=== PATIENT | female | born 1995 | race Caucasian/White ===

== ENCOUNTER 2017-02-25 08:31 | Emergency (ER) | payer OTHER, BC ==
[~2017-02-25] VITALS: Ht 170.2 cm; Wt 68.0 kg
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
[2017-02-25 09:29] LABS: BILIRUBIN,URINE NEGATIVE (NEG); GLUCOSE,URINE NEGATIVE (NEG); NITRITE,URINE NEGATIVE (NEG); PH,URINE 5.5; PROTEIN,URINE 30 mg/dL (NEG-TRACE); UROBILINOGEN,URINE 0.2 mg/dL (0.2 mg/dL)
[2017-02-25 09:39] LABS: RBC,URINE 0 /HPF (0-2)
[2017-02-25 09:40] LABS: BACTERIA,URINE 0 /HPF (0-FEW); SQUAMOUS EPITHELIAL CELL,UR MOD /LPF; WBC,URINE 0 /HPF (0-4)
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
[2017-02-25] MEDS ORDERED: DIPHTH,PERTUSS(ACELL),TET TOX 0.5 ML DISP.SYRIN. VAX IM ONE (10:00)
[2017-02-25] MEDS ORDERED: HYDROcodone/APAP 5/325MG 1 TAB TABLET PO ONE (10:45)
[2017-02-25 10:50] VITALS: BP 138/70
[2017-02-25] MEDS ORDERED: HYDR-971 PO (11:03)
[2017-02-25] MEDS ORDERED: NEOMY/BACITR/POLYMYXIN OINT PACKET. TP ONE ×2 (11:10→11:18)
== END 2017-02-25 11:45 | disposition home or self-care (01) ==
LOC: ER 08:31
DX: S62.322A Displaced fracture of shaft of third metacarpal bone, right hand, initial encounter for closed fracture (principal); M25.562 Pain in left knee; M25.561 Pain in right knee; V43.52XA Car driver injured in collision with other type car in traffic accident, initial encounter; Y93.89 Activity, other specified; Y99.8 Other external cause status; Y92.488 Other paved roadways as the place of occurrence of the external cause
CPT/HCPCS: 29125; 73130; 73564; 81001; 81025; 99285-25